=== PATIENT | male | born 1970 | race Caucasian/White ===

== ENCOUNTER 2017-11-16 13:31 | Emergency (ER) | payer BC, MEDICAID ==
[~2017-11-16] VITALS: Ht 182.9 cm; Wt 105.0 kg
[~2017-11-16 13:31] MED LIST: BACT800T5 PO; CEPH500C3 PO
[2017-11-16 13:44] VITALS: BP 165/101; PULSE 74; RESP 20; TEMP 98.5; O2SAT 99
[2017-11-16] MEDS ORDERED: PRED20 PO (15:46)
--- NOTE | 2017-11-16 15:51 | PD ---
HPI Chief Complaint: Skin Problem Time Seen by Provider: 15:31 Travel History International Travel<30 days: No Contact w/Intl Traveler<30days: No Traveled to known affect area: No History of Present Illness HPI 47-year-old male presents the ED for evaluation of 10 day history of swelling, peeling and chafing of bilateral hands. Gradual onset after the patient helped some friends clean and new property. He states he was using denatured alcohol, Melyssa dish soap and latex gloves. He denies fever, chills. He endorses mild limitation to range of motion secondary to edema of the bilateral hands. He denies numbness, tingling, weakness. Denies respiratory symptoms, close throat sensation. He has been treating at home with cornhusker's lotion and bag balm with no improvement of symptoms. He has never had a reaction like this before. PFSH Past Medical History Cardiovascular Problems: Yes (htn, takes no meds) Diminished Hearing: No Social History Alcohol Use: No Tobacco Use: Yes (1PPD) Substance Use: Yes (OCC MARIJUANA) Allergies-Medications (Allergen,Severity, Reaction): Coded Allergies: No Known Allergies (Unverified , 05/02/15) Reported Meds & Prescriptions Reported Meds & Active Scripts Active Prednisone 20 Mg Tab 20 Mg PO DAILY 5 Days Keflex (Cephalexin Monohydrate) 500 Mg Cap 500 Mg PO Q6 10 Days Bactrim DS (Sulfamethoxazole-Trimethoprim DS) 1 Tab Tab 1 Tab PO BID 10 Days Review of Systems Except as stated in HPI: all other systems reviewed are Neg Physical Exam Narrative GENERAL: Well-nourished, well-developed white male in no acute distress. SKIN: Focused skin assessment warm/dry. HEAD: Normocephalic. EYES: No scleral icterus. No injection or drainage. NECK: Supple, trachea midline. No JVD or lymphadenopathy. CARDIOVASCULAR: Regular rate and rhythm without murmurs, gallops, or rubs. RESPIRATORY: Breath sounds equal bilaterally. No accessory muscle use. GASTROINTESTINAL: Abdomen soft, non-tender, nondistended. MUSCULOSKELETAL: No cyanosis, or edema. 2+ radial pulse bilaterally. The bilateral hands are edematous, cracking, with several subcentimeter excoriations and superficial desquamation. Patient is able to flex and extend the digits of bilateral hands. Cap refill less than 2 seconds. Sensation intact to light touch distally. BACK: Nontender without obvious deformity. No CVA tenderness. Data Data Last Documented VS Vital Signs Date Time Temp Pulse Resp B/P (MAP) Pulse Ox O2 Delivery O2 Flow Rate FiO2 11/16/17 13:44 98.5 74 20 165/101 (122) 99 Orders Orders Ed Discharge Order (11/16/17 15:51) MDM Medical Decision Making Medical Screen Exam Complete: Yes Emergency Medical Condition: Yes Differential Diagnosis Contact dermatitis versus latex allergy versus secondary infection versus other Narrative Course 47-year-old male presents the ED for evaluation of 10 day history of swelling, peeling and chafing of bilateral hands. Gradual onset after the patient helped some friends clean a new property. He states he was using denatured alcohol, Melyssa dish soap and latex gloves. Denies respiratory symptoms, close throat sensation. Vitals reviewed. On exam the patient has erythema, edema, excoriations and superficial desquamation of bilateral hands. The bilateral upper extremities are otherwise intact. Unsure if this is contact dermatitis or a latex reaction, however will treat with a short course of steroids. Patient is encouraged to continue with emollient topical use, avoid latex, follow with the supervisor assembly room. We discussed signs of secondary infection and reasons to return to the ED. The patient indicated understanding of the instructions and is agreeable to the care plan. The patient is stable and discharged home. Diagnosis Primary Impression: Contact dermatitis Qualified Codes: L24.5 - Irritant contact dermatitis due to other chemical products Additional Impression: Allergic reaction Qualified Codes: T78.40XA - Allergy, unspecified, initial encounter Referrals: Radio Communication Coordinator Additional Instructions: Rest, hydrate. Begin prednisone today and take them and until every tablets gone. Resume normal, gentle activities as tolerated. Continue with daily care with cornhusker's lotion or bag balm. Avoid latex as possible. Monitor for signs of secondary infection as discussed. Follow-up with a supervisor assembly room. Return to the ED for worsening symptoms or any urgent or emergent medical condition. Med/Other Pt SpecificInfo: Prescription(s) given Scripts Prednisone (Prednisone) 20 Mg Tab 20 MG PO DAILY for 5 Days, #5 TAB 0 Refills Prov: Jeny Quinn MD 11/16/17 Disposition: 01 DISCHARGE HOME Condition: Stable Kimberley Lawrence November 16, 2017 15:51
== END 2017-11-16 16:08 | disposition home or self-care (01) ==
LOC: NEPK 13:31
DX: T51.0X1A Toxic effect of ethanol, accidental (unintentional), initial encounter (principal); L24.5 Irritant contact dermatitis due to other chemical products
CPT/HCPCS: 99283